=== PATIENT | male | born 1990 | race Caucasian/White ===

== ENCOUNTER 2017-12-17 16:39 | Emergency (ER) | payer OTHER ==
[~2017-12-17] VITALS: Ht 175.3 cm; Wt 145.1 kg
[2017-12-17 17:15] VITALS: BP 126/80
--- NOTE | 2017-12-17 17:34 | Emergency Room Report ---
History of Present Illness General Chief Complaint: Skin Rash/Abscess Source: Patient (Steve Mathews) Present Illness HPI 27-year-old male patient presents ER complaining of abscess on the back of his left hand. Patient reports history of similar symptoms a few months ago, states that he had abscess drained. Patient reports that symptoms began on Monday and had remained relatively constant since that time. Patient denies active drainage. Patient denies fever, chest pain, shortness breath, nausea, vomiting. patient reports he is right-hand dominant. Patient reports he does not remember what happened on Monday night, woke up on Monday with hand swelling, ankle pain, bite and his lip. Patient denies bleeding from lip. Patient reports able ambulate with pain. Patient reports no loss range of motion. Patient reports history of smoking cigarettes. Patient reports history of IV drug use. Reports had tetanus vaccination a few months ago prior to entering into rehabilitation. Reports recent relapse of drug use. (Steve Mathews) Allergies: Coded Allergies: No Known Allergies (Unverified , 12/17/17) Patient History Past Medical History: see triage record Reviewed Nursing Documentation: PMH: Agreed; PSxH: Agreed (Steve Mathews) Nursing Documentation-PMH Past Medical History: No Stated History (Steve Mathews) Review of Systems All Other Systems: negative except mentioned in HPI (Steve Mathews) Physical Exam Vital Signs Date Time Temp Pulse Resp B/P (MAP) Pulse Ox O2 Delivery O2 Flow Rate FiO2 12/17/17 16:55 98.1 108 20 127/88 100 Room Air 98.1 Sp02 EP Interpretation: reviewed, normal General Appearance: well appearing, no apparent distress, alert, GCS 15, non- toxic Head: normocephalic, atraumatic Eyes: bilateral eye normal inspection, bilateral eye PERRL ENT: hearing grossly normal, normal pharynx, no angioedema, normal voice, uvula midline, moist mucus membranes, other - lower lip: lesion consistent with bite benjamin, swelling, no active drainage Neck: full range of motion Respiratory: lungs clear, normal breath sounds, no rhonchi, no respiratory distress, no accessory muscle use, no wheezing, speaking full sentences Cardiovascular #1: regular rate, rhythm, no edema Cardiovascular #2: 2+ radial (R), 2+ radial (L), 2+ dorsalis pedis (R), 2+ dorsalis pedis (L) Musculoskeletal: back normal, digits/nails normal, gait/station normal, no calf tenderness, decreased range of motion - secondary to pain and swelling, swelling - left hand, other - cap refill <2 sec, , tender Neurologic: alert, oriented x3, responsive, motor strength/tone normal, sensory intact Psychiatric: mood/affect normal Skin: no rash (Steve Mathews) Medical Decision Making PA Attestation Dr. Sheikh is my supervising Physician whom patient management has been discussed with. (Steve Mathews) Diagnostic Impression: Primary Impression: Cellulitis of hand, left Additional Impression: IV drug abuse ER Course Pt. presents to the ED c/o cellulitis s/p IV drug use. Ddx considered but are not limited to rash, cellulitis, abscess, Vital signs: are WNL, pt. is afebrile ER COURSE: Physical exam shows swollen dorsum of left hand, decreased range of motion secondary to pain and swelling, erythema. Consult with Dr. Sheikh. Ordered IV antibiotics, lab tests, CT of hand, pain medication, blood cultures. IV Vanco administered. Patient observed limping with walking, order right ankle x-ray. x-ray of right ankle shows no acute fracture per preliminary reading. CT of right hand with contrast shows cellulitis, no signs of abscess or osteomyelitis left shoulder elevation in CRP and ESR. No elevation in WBC's. Patient resting comfortably in bed, no acute distress sleeping. Consult with Dr. Sheikh. Patient will be transferred to [facility] to the care of Dr. Rachel. .- Please note that this Emergency Department Report was dictated using [employer] agent technology software, occasionally this can lead to erroneous entry secondary to interpretation by the dictation equipment. Labs Test 12/17/17 18:20 White Blood Count 8.5 K/UL (4.8-10.8) Red Blood Count 5.14 M/UL (4.70-6.10) Hemoglobin 14.2 G/DL (14.2-18.0) Hematocrit 42.7 % (42.0-52.0) Mean Corpuscular Volume 83 FL (80-99) Mean Corpuscular Hemoglobin 27.7 PG (27.0-31.0) Mean Corpuscular Hemoglobin Concent 33.3 G/DL (32.0-36.0) Red Cell Distribution Width 13.5 % (11.6-14.8) Platelet Count 262 K/UL (150-450) Mean Platelet Volume 7.9 FL (6.5-10.1) Neutrophils (%) (Auto) 64.4 % (45.0-75.0) Lymphocytes (%) (Auto) 23.3 % (20.0-45.0) Monocytes (%) (Auto) 9.0 % (1.0-10.0) Eosinophils (%) (Auto) 1.9 % (0.0-3.0) Basophils (%) (Auto) 1.5 % (0.0-2.0) Erythrocyte Sedimentation Rate 80 MM/HR (0-15) Sodium Level 140 MMOL/L (136-145) Potassium Level 3.5 MMOL/L (3.5-5.1) Chloride Level 101 MMOL/L (98-107) Carbon Dioxide Level 29 MMOL/L (21-32) Anion Gap 10 mmol/L (5-15) Blood Urea Nitrogen 11 mg/dL (7-18) Creatinine 0.9 MG/DL (0.55-1.30) Estimat Glomerular Filtration Rate > 60 mL/min (>60) Glucose Level 106 MG/DL (74-106) Calcium Level 9.4 MG/DL (8.5-10.1) Total Bilirubin 0.6 MG/DL (0.2-1.0) Aspartate Amino Transf (AST/SGOT) 20 U/L (15-37) Alanine Aminotransferase (ALT/SGPT) 32 U/L (12-78) Alkaline Phosphatase 92 U/L (46-116) C-Reactive Protein, Quantitative 27.7 mg/dL (0.00-0.90) Total Protein 8.5 G/DL (6.4-8.2) Albumin 3.2 G/DL (3.4-5.0) Globulin 5.3 g/dL Albumin/Globulin Ratio 0.6 (1.0-2.7) (Steve Mathews P.A.) ER Course Please see above note. I examined this patient and agree with the assessment and treatment plan. Cannot exclude pressure phenomenon on hand during possible overdose on Monday, however, this looks cellulitic. Doubt fasciitis or tendinitis based on exam, however, this needs close follow (inpatient). Antibiotics begun and patient discussed with Dr. Rachel Patient improved and stable for transfer for IV antibiotics and repeat evaluations. (David Sheikh M.D.) Other X-Ray Diagnostic Results Other X-Ray Diagnostic Results : X-Ray ordered: right ankle # of Views/Limited Vs Complete: 3 View Indication: Pain EP Interpretation: Yes PA Xray: Interpretation reviewed, by supervising MD, and agrees with findings. Interpretation: no dislocation, no soft tissue swelling, no fractures Impression: No acute disease PA Scribe Text Chao Mathews PA-C (Steve Mathews P.AMarcio) Other X-Ray Diagnostic Results : Electronically Signed by: Scribe documentation reviewed by me and is accurate, David Sheikh MD. (David Sheikh M.D.) CT/MRI/US Diagnostic Results CT/MRI/US Diagnostic Results : Imaging Test Ordered: CT hand with contrast Impression Dorsal hand and wrist soft tissue induration worrisome for cellulitis. Mild thickening of the external fascial layer of the tendons may be fasciitis and possible tendinitis. No formed enhancing fluid collection to suggest an abscess. No soft tissue gas. Osseous structures intact without evidence of osteomyelitis. MRI more sensitive. (Steve [email or web address]) Last Vital Signs Date Time Temp Pulse Resp B/P (MAP) Pulse Ox O2 Delivery O2 Flow Rate FiO2 12/17/17 17:15 98.3 81 20 126/80 99 Room Air 98.3 (Steve [email or web address]) Last Vital Signs Date Time Temp Pulse Resp B/P (MAP) Pulse Ox O2 Delivery O2 Flow Rate FiO2 12/17/17 22:48 97.9 86 20 117/77 100 Room Air 97.9 Status: improved (David Sheikh M.D.) Disposition: XFER SHT-TRM HOSP Condition: Serious Steve Mathews December 17, 2017 17:34 David Sheikh M.D. December 18, 2017 04:50
[2017-12-17] MEDS ORDERED: Vancomycin 1 GM in D5W 275 ML IVPB ONE (18:00)
[2017-12-17] MEDS ORDERED: Ketorolac 30mg Inj IV ONE (18:00)
[2017-12-17] MEDS ORDERED: Isovue-300 100ml vial INJ PRN (18:00)
[2017-12-17 18:56] LABS: BASOPHILS % (AUTO) 1.5 % (0.0-2.0); EOSINOPHILS % (AUTO) 1.9 % (0.0-3.0); HEMATOCRIT 42.7 % (42.0-52.0); HEMOGLOBIN 14.2 G/DL (14.2-18.0); LYMPHOCYTES % (AUTO) 23.3 % (20.0-45.0); MEAN CORPUSCULAR VOLUME 83 FL (80-99); NEUTROPHILS % (AUTO) 64.4 % (45.0-75.0); PLATELET COUNT 262 K/UL (150-450); RED BLOOD COUNT 5.14 M/UL (4.70-6.10); RED CELL DISTRIBUTION WIDTH 13.5 % (11.6-14.8); WHITE BLOOD COUNT 8.5 K/UL (4.8-10.8)
[2017-12-17 19:01] LABS: ANION GAP 10 mmol/L (5-15); BLOOD UREA NITROGEN 11 mg/dL (7-18); CALCIUM 9.4 MG/DL (8.5-10.1); CARBON DIOXIDE 29 MMOL/L (21-32); CHLORIDE 101 MMOL/L (98-107); CREATININE 0.9 MG/DL (0.55-1.30); POTASSIUM 3.5 MMOL/L (3.5-5.1); SODIUM 140 MMOL/L (136-145)
[2017-12-17 19:06] LABS: ALANINE AMINOTRANSFERASE 32 U/L (12-78); ALBUMIN 3.2 G/DL (3.4-5.0); ALBUMIN/GLOBULIN RATIO 0.6 (1.0-2.7); ALKALINE PHOSPHATASE 92 U/L (46-116); ASPARTATE AMINO TRANSFERASE 20 U/L (15-37); BILIRUBIN,TOTAL 0.6 MG/DL (0.2-1.0)
[2017-12-17 19:15] VITALS: BP 131/85
[2017-12-17] MEDS ORDERED: NKM (19:19)
[2017-12-17 21:25] VITALS: BP 112/77
[2017-12-17 22:48] VITALS: BP 117/77
--- NOTE | 2017-12-18 08:28 | Diagnostic Imaging Report ---
Indication: Left hand swelling and pain. Status post heroin injection Technique: Continuous helical imaging of the left hand was performed in the transaxial plane after the intravenous administration of nonionic contrast. Coronal 2-D reformatted images were also generated. Study obtained in a Siem[employer] Sensation [address] total DLP: 289 mGycm CTD/vol: 0.15, 0.15, 11.52 mGy Comparison: None Findings: There is subcutaneous reticulation and skin thickening consistent with cellulitis. This is in the dorsum of the hand. There is no circumscribed or rim-enhancing fluid collection to suggest abscess. There is no soft tissue air. The bones appear normal with no evidence of erosion or periostitis. IMPRESSION: Cellulitis of the dorsum of the hand. No evidence of abscess. The CT scanner at [facility] is accredited by the [employer] and the scans are performed using dose optimization techniques as appropriate to a performed exam including Automatic Exposure control.
--- NOTE | 2017-12-18 09:37 | Diagnostic Imaging Report ---
Indication: Pain right ankle ankle pain/trauma Comparison: None Findings: 3 views of the right ankle obtained. No acute fracture, malalignment, periostitis, or osteochondral defects are identified. Soft tissues are unremarkable. Os trigonum noted Impression: Negative examination
== END 2017-12-17 22:51 | disposition short-term general hospital (02) ==
LOC: EMR 18:22
DX: L03.114 Cellulitis of left upper limb (principal); F19.10 Other psychoactive substance abuse, uncomplicated; M25.571 Pain in right ankle and joints of right foot
CPT/HCPCS: 36415; 73202; 73610; 80053; 85025; 85651; 86140; 87040; 96374; 96375; 99285; J1885; J3370; Q9967